=== PATIENT | female | born 2005 | race Caucasian/White ===

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

== ENCOUNTER → 2025-03-23 | Outpatient (CLI) | payer OTHER, SELFPAY ==
[2025-03-23 09:03] LABS: Absolute Lymphocyte Count 1.89 X10^3/uL (0.83-4.51); Absolute Neutrophil Count 3.1 X10^3/uL (2.0-7.7); Basophil# 0.06 X10^3/uL; Eosinophils% 1.7 % (0-5); Hematocrit 38.6 % (37-47); Hemoglobin 13.6 g/dL (12.0-15.0); Lymphocyte # 1.89 X10^3/ul (0.83-4.51); Lymphocyte % 32.5 % (19-41); Mean Corp Hgb Conc 35.2 g/dL (32-36); Mean Corpuscular Hgb 31.6 pg (27.0-32.0); Mean Corpuscular Volume 89.6 fL (81-99); Mean Platelet Vol. 10.5 fl (6.2-12.0); Monocyte# 0.62 X10^3/uL; Monocyte% 10.7 % (0-10); NRBC Flagged by Analyzer 0 % (0-5); Neutrophil # 3.13 X10^3/uL (2.7-7.7); Neutrophil % 53.8 % (47-70); Platelet Count 196 K/mm3 (150-450); RBC Distribution Width CV 11.9 % (11.6-14.6); RBC Distribution Width SD 38.9 fl (35.1-43.9); Red Blood Count 4.31 M/mm3 (4.2-5.4); White Blood Count 5.8 K/mm3 (4.4-11.0)
[2025-03-23 09:52] LABS: Hemoglobin A1c 4.9 % (<=5.6)
[2025-03-23 10:11] LABS: ALB/GLOB Ratio 1.7 RATIO (0.9-2.4); AST(SGOT) 18 U/L (<=31); Alanine Aminotransfer ALT/SGPT 7 U/L (<=34); Albumin, Serum 4.6 g/dL (3.5-5.0); Alkaline Phosphatase 52 U/L (35-104); Anion Gap 10 (5-15); BUN 12 mg/dL (4-19); BUN/Creat Ratio 14.4 RATIO (10-20); Calcium,Total 9.7 mg/dL (7.6-11.0); Carbon Dioxide 23.8 mmol/L (21.0-32.0); Chloride 105 mmol/L (98-108); Cholesterol 153 mg/dL (<=190); Creatinine, Serum 0.82 mg/dL (0.70-1.20); EST Glomerular Filtration Rate 104 (>60); Free T3 3.7 pg/mL (2.18-3.98); Globulin 2.7 g/dL (2.2-4.2); Glucose 94 mg/dL (70-99); High Density Lipoprotein 66 mg/dL; Low Density Lipoprotein Calc. 73 mg/dL; Protein, Total 7.3 g/dL (5.9-8.4); Sodium Level 138 mmol/L (133-145); Total Bilirubin 0.74 mg/dL (0.00-1.30); Triglycerides 74 mg/dL; Very Low Density Lipoprotein 15 mg/dL (5-40); Vitamin D,25 Hydroxy 28.6 ng/mL (30-100); cholesterol:hdl ratio screen 2.34
[2025-03-28 02:07] LABS: 17-Hydroxyprogesterone 364 ng/dL (.); PROGESTERONE 25.5 ng/mL (.)
[2025-03-28 19:08] LABS: Androstenedione 119 ng/dL (41-262); Insulin Level 9.8 uIU/mL (2.6-24.9); PROLACTIN 32.2 ng/mL (4.8-33.4)
== END | disposition home or self-care (01) ==
LOC: LAB 08:24
PROVIDERS: PCP Pediatrics
DX: E28.8 Other ovarian dysfunction (principal); N92.6 Irregular menstruation, unspecified; N94.3 Premenstrual tension syndrome
CPT/HCPCS: 36415; 80053; 80061; 82157; 82306; 82533; 82627; 82670; 83036; 83498; 83525; 84144; 84146; 84403; 84439; 84443; 84481; 85025; 82626

== ENCOUNTER → 2025-04-02 | Outpatient (CLI) | payer OTHER, SELFPAY ==
[2025-04-02 09:29] LABS: Follicle Stimulating Hormone 5.9 mIU/mL; Luteinizing Hormone 6.2 mIU/mL
== END | disposition home or self-care (01) ==
LOC: LAB 07:59
PROVIDERS: PCP Pediatrics
DX: N92.6 Irregular menstruation, unspecified (principal); N94.3 Premenstrual tension syndrome
CPT/HCPCS: 36415; 83001; 83002